=== PATIENT | female | born 1985 | race Asian ===

== ENCOUNTER 2017-12-19 16:23 | Emergency (ER) | payer OTHER ==
[~2017-12-19] VITALS: Ht 152.4 cm; Wt 45.4 kg
[2017-12-19 16:54] VITALS: BP 105/61
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
[2017-12-19] MEDS ORDERED: LIDODERM700 M1 TOPIC (17:24)
[2017-12-19] MEDS ORDERED: ROBAXIN-750750 MG PO (17:24)
[2017-12-19] MEDS ORDERED: IBUPROFEN600 MG ORAL (17:24)
[2017-12-19 18:30] VITALS: BP 105/61
== END 2017-12-19 18:30 | disposition home or self-care (01) ==
LOC: EMR 18:00
DX: S16.1XXA Strain of muscle, fascia and tendon at neck level, initial encounter (principal); V43.62XA Car passenger injured in collision with other type car in traffic accident, initial encounter; Y92.410 Unspecified street and highway as the place of occurrence of the external cause
CPT/HCPCS: 99284